=== PATIENT | female | born 1980 | race Caucasian/White ===

== ENCOUNTER 2017-05-27 03:42 | Inpatient (IN) ==
[2017-05-27] MEDS ORDERED: CITRIC ACID/SODIUM CITRATE 30ml PO ONE (05:48)
[2017-05-27] MEDS ORDERED: FAMOTIDINE PB 20 MG/50 ML BAG IV ONE (05:48)
[2017-05-27] MEDS ORDERED: NOZIN NASAL SWAB NAS ONE ×2 (05:50)
[2017-05-27] MEDS ORDERED: CEFAZOLIN PREMIX (MC ONLY) 2 GM/50 ML BAG IV ONE (05:50)
[2017-05-27] MEDS ORDERED: NOZIN NASAL SWAB NAS SCH (06:00)
[2017-05-27] MEDS: LR 1,000 ML IV SCH ×3 (06:10→13:11)
[2017-05-27 06:18] VITALS: BMI 35.0
--- NOTE | 2017-05-27 06:49 | Anesthesia Preoperative Report ---
Anesthesia Preoperative Record - Date and Time Date: 05/27/17 Preoperative Diagnosis: Repeat C section PPTL previous csecton, pt request sterilization Proposed Procedure: repeat csection, tubal ligation NPO Since Date: 05/26/17 NPO Since Time: 23:00 Allergies/Adverse Reactions: Allergies Allergy/AdvReac Type Severity Reaction Status Date / Time No Known Allergies Allergy Verified 04/06/17 19:20 - Vital Signs Vital Signs: Temperature 98.6 F 05/27/17 06:18 Pulse Rate 77 05/27/17 06:18 Respiratory Rate 18 05/27/17 06:18 Blood Pressure 139/64 05/27/17 06:18 Pulse Oximetry 98 05/27/17 06:18 Height and Weight: Height 1.65 m Weight 95.6 kg Body Mass Index 35.0 - Medications Inpatient Medications: Current Medications Lactated Ringer's (Lactated Ringers) 1,000 mls @ 999 mls/hr IV .Q1H1M [facility] Last Admin: 05/27/17 06:10 Dose: 999 mls/hr Isopropyl Alcohol (Nozin Nasal Swab) 1 each JEAN CARLOS 0600,1400,2200 [facility] Home Medications: Home Medications Medication Instructions Recorded Confirmed Type Acetaminophen [Tylenol] 500 - 1,000 mg PO PRN PRN 05/18/17 05/18/17 History Omeprazole Magnesium [Prilosec Otc] 20 mg PO DAILY 05/18/17 05/18/17 History Pnv No.95/Ferrous Fum/Folic AC 1 each PO DAILY 05/18/17 05/18/17 History [ Tablet] - Medical History Neuro/Musculoskeletal: Reports: Back Problems (lower back pain with weather changes ) Denies: Depression Other History: Reports: Now DENIES: Anesthesia Reactions - Surgical History Reproductive Surgery/Treatment: Reports: Section Anesthesia Reactions: None Hx Family Anesthesia Reaction: No - Social History Smoking Status: Never smoker - Pertinent Findings Laboratory: CBC and BMP 05/27/17 06:11 - Airway Assessment Mallampati Score: II TMD: 3 Fingerbreadths Neck Extension: good Overall Assessment: no airway concerns - ASA ASA Score: 2 - Plan Regional/Trunk Block: Spinal - Discussion Discussion: Discussed risks/options/alternatives of anesthesia and questions answered. Patient consents. Nursing pain assessment noted. Attestation Statement: Prior to the delivery of any anesthetic medication, I examined the patient, developed the plan, obtained the patient's consent and discussed the risk and benefits of the procedure with the patient/guardian. - Additional Information Seen by Anesthesia: Yes
[2017-05-27] MEDS ORDERED: MORPHINE SULFATE PF 5mg/10ml INJ (Duramorph) ONE (07:05)
[2017-05-27] MEDS ORDERED: EPHEDRINE 50mg/ml INJECTION ONE (07:06)
[2017-05-27] MEDS ORDERED: FentaNYL 100 MCG/2 ML INJECTION ONE (07:06)
[2017-05-27] MEDS ORDERED: ONDANSETRON 4 MG/2 ML INJECTION ONE (07:10)
[2017-05-27] MEDS: OXYTOCIN BOLUS BAG 30 UNIT/500 ML ML IV SCH ×3 (07:34→13:09)
[2017-05-27] MEDS ORDERED: NALOXONE 2 MG/2 ML INJECTION PFS IVP PRN (07:35)
[2017-05-27] MEDS ORDERED: METOCLOPRAMIDE 10mg/2ml INJECTION IVP PRN (07:35)
[2017-05-27] MEDS ORDERED: NALBUPHINE 10 MG/ML INJECTION IVP PRN (07:35)
[2017-05-27] MEDS ORDERED: ONDANSETRON 4 MG/2 ML INJECTION IVP PRN (07:35)
[2017-05-27] MEDS ORDERED: HYDROCORTISONE 2.5% CREAM 30gm RECTALLY PRN (08:24)
[2017-05-27] MEDS ORDERED: OXYTOCIN DRIP 30 UNIT/500 ML ML IV SCH (08:24)
[2017-05-27] MEDS ORDERED: D5LR 1,000 ML IV SCH (08:24)
[2017-05-27] MEDS ORDERED: ACETAMINOPHEN 500 MG TABLET PO PRN (08:24)
[2017-05-27] MEDS ORDERED: SIMETHICONE 80 MG CHEWABLE TABLET PO PRN (08:24)
[2017-05-27] MEDS ORDERED: DiphenhydrAMINE 25 MG CAPSULE PO PRN (08:24)
[2017-05-27] MEDS ORDERED: CALCIUM CARBONATE Chewable 500mg TABLET PO PRN (08:24)
--- NOTE | 2017-05-27 08:24 | Anesthesia Postoperative Note ---
- Date and Time Date: 05/27/17 Time: 08:25 - Status Patient Participated in Evaluation: Patient Participated in Person Vital Signs: Temperature 98.6 F 05/27/17 06:18 Pulse Rate 77 05/27/17 06:18 Respiratory Rate 18 05/27/17 06:18 Blood Pressure 139/64 05/27/17 06:18 Pulse Oximetry 98 05/27/17 06:18 Respiratory Function: Airway Patent Cardiovascular Function: Regular Pulse Mental Status: Alert and Oriented Pain Intensity: 0 Hydration: IV Infusing Complications During Recover: None Apparent - Follow-Up Instructions Instructions: Per Surgeon
[2017-05-27] MEDS: IBUPROFEN 800 MG TABLET PO SCH ×2 (09:57→19:32)
[2017-05-27] MEDS: DOCUSATE CALCIUM 240 MG CAPSULE PO SCH (10:37)
[2017-05-27] MEDS: SIMETHICONE 80 MG CHEWABLE TABLET PO SCH ×3 (10:37→19:32)
--- NOTE | 2017-05-27 16:47 | Operative Note ---
DATE OF SURGERY 05/27/2017 PREOPERATIVE DIAGNOSES 1. Term , previous x 3. 2. Desires sterilization. POSTOPERATIVE DIAGNOSES 1. Term , previous x 3. 2. Desires sterilization. PROCEDURE Repeat low transverse section with bilateral tubal ligation. SURGEON Daksha Ryan MD [employer] Eloisa Maurice MD ANESTHESIA Combo spinal epidural by Miguel Barnett CRNA. EBL 800 mL. DESCRIPTION OF PROCEDURE Ms. Elvira Robles was brought to the OR and given regional analgesia to good effect. She was then placed on the OR table in the supine position with left lateral displacement. A Gallo catheter was placed to dependent drain. The abdomen was prepped and draped in the usual sterile fashion. A Pfannenstiel incision was made through the patient's previous scar. This was carried down to fascia. Fascia was incised transversely, then tented up. This was bluntly and sharply dissected free of rectus muscles. Rectus muscles were bluntly divided. Peritoneum was entered and extended vertically and a bladder blade inserted. The bladder was noted to be well below our area of operation. A low transverse uterine incision was made with a sharp knife. There was copious clear amniotic fluid. Baby was delivered in the vertex presentation without difficulty. There was a loose nuchal cord that was reduced prior to delivery of the head and baby was bulb suctioned on the abdomen prior to delivery in total. The cord was then doubly clamped and cut and baby was given to the pediatric team for care. This is a liveborn female with Apgars of 9/9. She weighed 8 pounds, 14.1 ounces. The placenta was then expressed intact. It had a normal configuration and normal-appearing three-vessel cord. The uterine cavity was swept clear of membranes and we exteriorized the uterus. The myometrial incision was then reapproximated with a running, locking 0-Monocryl. This had good hemostasis and we turned our attention to the tubal ligation. The right fallopian tube was grasped with a Alireza clamp and visualized to its fimbria. It was then ligated with a simple tie of 2-0 chromic. We then pierced the mesosalpinx and secured both sides with a simple ligature of 2-0 silk. After these two ligatures were tied we removed the fallopian tube and inspected for hemostasis which was under good control. We repeated the procedure in the exact same fashion on the left side. After reinspecting myometrium and both tubal ligation sites for hemostasis we returned the uterus to the abdominal cavity. We reinspected all sites for hemostasis and continued our closure. Peritoneum was reapproximated with running, nonlocking 2-0 Vicryl. Fascia was reapproximated with running, nonlocking 0-Vicryl. Skin edges were reapproximated with subcuticular style 3-0 undyed Vicryl. The wound was dressed with Steri-Strips and sterile dressing. Counts were correct postoperatively x 2. The urine remained clear and free-flowing throughout the procedure. The patient at this moment is in the process of being transferred to recovery. She is in stable condition. CONSTANTINO
[2017-05-27] MEDS: HYDROCODONE/APAP 5mg/325mg TABLET PO PRN (19:32)
[2017-05-28] MEDS: SIMETHICONE 80 MG CHEWABLE TABLET PO SCH ×4 (01:00→22:35)
[2017-05-28] MEDS: HYDROCODONE/APAP 5mg/325mg TABLET PO PRN ×3 (03:31→22:35)
[2017-05-28] MEDS: IBUPROFEN 800 MG TABLET PO SCH ×3 (03:31→16:27)
--- NOTE | 2017-05-28 08:21 | OB/GYN Progress Note ---
OB-PP Progress Note - General POD:: POD1 - Subjective Date: 05/28/17 Lochia: Moderate Pain: controlled Voiding: avelar still in place (clear urine) Nausea or Vomiting Present: No - Objective Vital Signs: Last Vital Signs Temp 98.2 F 05/28/17 07:30 Pulse 97 05/28/17 07:30 Resp 16 05/28/17 07:30 BP 127/75 05/28/17 07:30 Pulse Ox 98 05/28/17 07:30 Urine Output: good General: alert and oriented Cardiovascular: regular rate,rhythm Respiratory: non-labored Abdomen: fundus firm Incision: intact (one small area in middle of the incision with sm. amount of blood. ) Extremities: non-tender Laboratory: Laboratory Results - last 24 hr 05/27/17 15:44 WBC 13.8 H RBC 3.82 L Hgb 10.4 L Hct 32.1 L MCV 84.0 MCH 27.2 MCHC 32.4 RDW Std Deviation 38.8 Plt Count 219 MPV 11.0 - Assessment Assessment: Repeat C/S - Plan Plan: routine care
[2017-05-28] MEDS: DOCUSATE CALCIUM 240 MG CAPSULE PO SCH (13:53)
[2017-05-28 17:02] VITALS: O2SAT 97
[2017-05-29] MEDS: SIMETHICONE 80 MG CHEWABLE TABLET PO SCH (00:25)
[2017-05-29] MEDS: IBUPROFEN 800 MG TABLET PO SCH ×2 (06:49→09:58)
[2017-05-29] MEDS: HYDROCODONE/APAP 5mg/325mg TABLET PO PRN (06:50)
[2017-05-29 06:58] VITALS: BP 141/81; PULSE 78; RESP 16; TEMP 97.4
== END 2017-05-29 10:49 | disposition home or self-care (01) | DRG 766 ==
LOC: MC 05:44
PROVIDERS: ADMIT Obstetrics & Gynecology; ATTEND Obstetrics & Gynecology